=== PATIENT | male | born 1985 | race Caucasian/White ===

== ENCOUNTER 2023-10-14 23:11 | Emergency (ER) | payer OTHER ==
[~2023-10-14] VITALS: Ht 170.2 cm; Wt 76.6 kg
[2023-10-14 23:29] VITALS: TEMP 97.8
[2023-10-14] MEDS: MORPHINE SULFATE 2 MG/ML SYRINGE IVP ONE (23:31)
[2023-10-14] MEDS: BACITRACIN 0.9 GM PACKET OINTMENT TP ONE (23:33)
[2023-10-14] MEDS: PERTUSS(ACELL),DIPH,TET VAC/PF 0.5 ML SYRINGE IM. ONE (23:33)
[2023-10-15 00:01] LABS: BASOPHILS % (AUTO) 0.3 % (0.0-2.0); EOSINOPHILS % (AUTO) 0 % (1.0-6.0); HEMATOCRIT 43.2 % (41-53); HEMOGLOBIN 14.9 g/dL (13.5-17.5); LYMPHOCYTES # (AUTO) 1.1 K/uL (1.0-4.8); LYMPHOCYTES % (AUTO) 6.8 % (22.0-44.0); MEAN CORPUSCULAR HEMOGLOBIN 30.3 pg (26.0-34.0); MEAN CORPUSCULAR HGB CONC 34.5 G/dL (31.0-37.0); MEAN CORPUSCULAR VOLUME 88 fL (80-100); MONOCYTES % (AUTO) 6.4 % (2.0-9.0); NEUTROPHILS # (AUTO) 13.4 K/uL (1.8-7.7); PLATELET COUNT (AUTO) 185 K/uL (150-450); RED BLOOD CELL COUNT(AUTO) 4.92 MIL/uL (4.50-5.90); RED CELL DISTRIBUTION WIDTH 13.6 % (11.5-14.5); WHITE BLOOD COUNT (AUTO) 15.5 K/uL (4.5-11.0)
[2023-10-15 00:11] LABS: NEUTROPHILS % (AUTO) 86.5 % (40.0-70.0)
[2023-10-15 00:12] LABS: ANION GAP 13 mmol/L (8-16); CALCIUM, TOTAL 8.8 mg/dL (8.8-10.5); CARBON DIOXIDE 25 mmol/L (22-29); CHLORIDE 102 mmol/L (98-107); CREATININE 1.31 mg/dL (0.60-1.30); GLOMERULAR FILTR. RATE CALC > 60 mL/min (>60); GLUCOSE,RANDOM 120 mg/dL (70-110); SODIUM SERUM 140 mmol/L (136-145); UREA NITROGEN, BLOOD 13 mg/dL (7-18)
[2023-10-15 00:18] LABS: TROPONIN I-HIGH SENSITIVITY 9 ng/L (<76)
[2023-10-15 00:20] LABS: ALANINE AMINOTRANSFERASE 20 U/L (12-78); ALBUMIN 4.3 g/dL (3.4-5.0); ALCOHOL, BLOOD (SERUM) < 3 mg/dL (0-10); ALKALINE PHOSPHATASE 97 U/L (46-116); ASPARTATE AMINOTRANSFERASE 31 U/L (15-37); BILIRUBIN,TOTAL 0.6 mg/dL (0.1-1.0); CREATINE KINASE, TOTAL ONLY 569 U/L (39-308)
[2023-10-15 00:22] LABS: B-TYPE NATRIURETIC PEPTIDE 5 pg/mL (0-100)
[2023-10-15 00:32] LABS: PROTHROMBIN TIME 10.6 SEC (9.4-11.6)
[2023-10-15] MEDS ORDERED: IOHEXOL 350 MG/ML 100 ML VIAL ONE (00:38)
[2023-10-15] MEDS ORDERED: SODIUM CHLORIDE 0.9% 100 ML ONE (00:38)
[2023-10-15] MEDS: LIDOCAINE 1%/EPI 1:200,000/PF 30 ML VIAL SQ ONE (01:18)
[2023-10-15] MEDS: SODIUM CHLORIDE 0.9% 1,000 ML IV ONE (01:19)
[2023-10-15 05:08] VITALS: BP 131/71; PULSE 89; RESP 16
== END 2023-10-15 05:28 ==
LOC: EMS 23:11
DX: S52.201A Unspecified fracture of shaft of right ulna, initial encounter for closed fracture (principal); S01.112A Laceration without foreign body of left eyelid and periocular area, initial encounter; S22.32XA Fracture of one rib, left side, initial encounter for closed fracture; Y04.8XXA Assault by other bodily force, initial encounter; Y93.89 Activity, other specified; Y92.89 Other specified places as the place of occurrence of the external cause; Y99.8 Other external cause status
CPT/HCPCS: 99285; 96374; 71045; 80053; 82550; 83880; 84484; 85025; 85610; 85730; 86850; 86900; 86901; 36415; 73090; 73110; 73130; 73590; 90715; 12013; 29125; 93005; 70450; 96361; 70486; 71260; 72125; 72128; 72131; 74160; 72193; G0480; J3490; J2270; Q9967; J7030; J7050